=== PATIENT | female | born 1980 | race African-American/Black ===

== ENCOUNTER 2020-01-06 00:15 | Emergency (ER) | payer MEDICAID, OTHER ==
[2020-01-06 01:51] LABS: ABSOLUTE BASOPHILS # (AUTO) 0.1 10^3/uL (0.0-0.2); ABSOLUTE EOSINOPHILS # (AUTO) 0.2 10^3/uL (0.0-0.6); ABSOLUTE LYMPHOCYTES (AUTO) 2.4 10^3/uL (0.5-4.7); ABSOLUTE MONOCYTES (AUTO) 0.4 10^3/uL (0.1-1.4); BASOPHILS % (AUTO) 0.8 % (0-2); EOSINOPHILS % (AUTO) 3.9 % (0-6); HEMATOCRIT 38.7 % (36.0-47.0); HEMOGLOBIN 12.9 g/dL (12.0-15.5); LYMPHOCYTES % (AUTO) 39.3 % (13-45); MEAN CORPUSCULAR HEMOGLOBIN 27.8 pg (27.0-33.4); MEAN CORPUSCULAR HGB CONC 33.4 g/dL (32.0-36.0); MEAN CORPUSCULAR VOLUME 83 fl (80-97); MONOCYTES % (AUTO) 6.9 % (3-13); PLATELET COUNT 182 10^3/uL (150-450); RED BLOOD COUNT 4.65 10^6/uL (3.72-5.28); RED CELL DISTRIBUTION WIDTH 15.7 % (11.5-14.0); SEGMENTED NEUTROPHILS % (AUTO) 49.1 % (42-78); TOTAL CELLS COUNTED % (AUTO) 100 %; WHITE BLOOD COUNT 6.1 10^3/uL (4.0-10.5)
--- NOTE | 2020-01-06 01:51 | ER Document Report ---
ED GI/ - General Chief Complaint: Nausea Stated Complaint: ABDOMINAL PAIN Time Seen by Provider: 01/06/20 01:27 Primary Care Provider: [facility] [Provider Group] - Follow up as needed DOUGLAS DON MD [Primary Care Provider] - Follow up as needed Notes: Patient is a 39-year-old female that comes emergency department for chief complaint of intermittent abdominal cramping, vaginal bleeding and spotting, intermittent nausea, sensitivity to smell of some foods, and occasional lightheadedness. She states that she felt much worse while she was at work today. She states she took 2 Plan B pills over the past month, she had a negative test yesterday. However she denies any current symptoms including dizziness, nausea, abdominal pain, or current vaginal bleeding except for minimal spotting. She denies any dysuria, vaginal discharge, or concerns for STD. She denies any daily medications or surgeries although she was told she was "borderline diabetic" and she is concerned maybe her blood sugar is very high. TRAVEL OUTSIDE OF THE [place] IN LAST 30 DAYS: No - Related Data Allergies/Adverse Reactions: No Known Drug Allergies Allergy (Verified 12/14/14 02:20) Past Medical History - General Information source: Patient - Social History Smoking Status: Never Smoker Frequency of alcohol use: None Drug Abuse: None Lives with: Family Family History: None - Immunizations Immunizations up to date: Yes Hx Diphtheria, Pertussis, Tetanus Vaccination: Yes Review of Systems - Review of Systems Constitutional: See HPI EENT: No symptoms reported Cardiovascular: No symptoms reported Respiratory: No symptoms reported Gastrointestinal: See HPI Genitourinary: See HPI Female Genitourinary: See HPI Musculoskeletal: No symptoms reported Skin: No symptoms reported Hematologic/Lymphatic: No symptoms reported Neurological/Psychological: No symptoms reported Physical Exam - Vital signs Vitals: Temp Pulse Resp BP Pulse Ox 98.3 F 75 16 127/84 H 98 01/06/20 00:22 01/06/20 00:22 01/06/20 00:22 01/06/20 00:22 01/06/20 00:22 - Notes Notes: GENERAL: Alert, interacts well. No acute distress. HEAD: Normocephalic, atraumatic. EYES: Pupils equal, round, and reactive to light. Extraocular movements intact. ENT: Oral mucosa moist, tongue midline. Oropharynx unremarkable. Airway patent. LUNGS: Clear to auscultation bilaterally, no wheezes, rales, or rhonchi. No respiratory distress. Non-tender chest wall. HEART: Regular rate and rhythm. No murmur ABDOMEN: Soft, non-tender. Non-distended. Bowel sounds present in all 4 quadrants. No guarding, rigidity, or rebound tenderness GENITOURINARY: Deferred EXTREMITIES: Moves all 4 extremities spontaneously. No edema, normal radial and dorsalis pedis pulses bilaterally. No cyanosis. BACK: no cervical, thoracic, lumbar midline tenderness. No saddle anesthesia, normal distal neurovascular exam. Moves all extremities in full range of motion. NEUROLOGICAL: Alert and oriented x3. Normal speech. Cranial nerves II through XII grossly intact. Strength 5/5 in all extremities. PSYCH: Normal affect, normal mood. SKIN: Warm, dry, normal turgor. No rashes or lesions noted. Course - Re-evaluation Re-evalutation: Patient is very well-appearing on my exam. She is smiling, talkative, and she has an unremarkable abdominal exam. Vital signs unremarkable. CBC unremarkable, chemistry with very borderline glucose but no acidosis, urinalysis shows possible infection with bacteria, white blood cells. Urine is very concentrated with elevated specific gravity. Patient was given IV fluids. On reevaluation patient has no complaints. Patient now tells me that she has been diagnosed with fibroids and this intermittently increases her bleeding and causes some cramping. Low suspicion of torsion based on her exam. I discussed work-up findings and work-up options. test is negative. Pelvic exam deferred after discussion. Patient had no additional complaints, decision was made to proceed with treatment of potential UTI, patient will follow-up with [facility], she will return for any concerning symptoms, these were discussed. Patient states understanding and agreement. Stable and well-appearing at time of discharge. - Vital Signs Vital signs: Temp Pulse Resp BP Pulse Ox 98.3 F 66 18 138/90 H 100 01/06/20 00:22 01/06/20 05:05 01/06/20 05:05 01/06/20 05:05 01/06/20 05:05 - Laboratory Result Diagrams: 01/06/20 01:34 01/06/20 01:34 Laboratory results interpreted by me: 01/06/20 01/06/2020 01:34 01:34 01:34 RDW 15.7 H Est GFR (MDRD) Non-Af 59 L Glucose 126 H Urine Protein 30 H Urine Blood LARGE H Urine Urobilinogen 2.0 H Ur Leukocyte Esterase MODERATE H Discharge - Discharge Clinical Impression: Abdominal cramping, Metrorrhagia, Dehydration Condition: Stable Disposition: HOME, SELF-CARE Additional Instructions: Your overall evaluation is reassuring. It does show a dehydration, urinary tract infection, but no other concerning findings. Your red blood cells are not concerning the low from your bleeding. Take the antibiotic as prescribed for the urinary tract infection, drink more fluids, follow-up with primary care for additional management. Follow-up with the [facility] referral listed for irregular vaginal bleeding and fibroids. Return if you worsen including fever, vomiting, severe worsening pain, passing out, or any other concerning symptoms. Prescriptions: Cephalexin Monohydrate [Keflex 500 mg Capsule] 500 mg PO BID 5 Days #10 capsule Forms: Return to Work Referrals: DOUGLAS DON MD [Primary Care Provider] - Follow up as needed [facility] [Provider Group] - Follow up as needed
[2020-01-06 02:00] LABS: APPEARANCE,URINE TURBID; BILIRUBIN,URINE NEGATIVE (NEGATIVE); GLUCOSE, URINE NEGATIVE (NEGATIVE); KETONES,URINE NEGATIVE (NEGATIVE); LEUKOCYTE ESTERASE,URINE MODERATE (NEGATIVE); NITRITE,URINE NEGATIVE (NEGATIVE); PROTEIN,URINE 30 mg/dL (NEGATIVE); URINE SPECIFIC GRAVITY 1.036
[2020-01-06 02:01] LABS: ALBUMIN 4.4 g/dL (3.5-5.0); ALKALINE PHOSPHATASE 95 U/L (38-126); ANION GAP 10 (5-19); ASPARTATE AMINO TRANSFERASE 20 U/L (14-36); BILIRUBIN,DIRECT 0.2 mg/dL (0.0-0.4); BILIRUBIN,TOTAL 0.6 mg/dL (0.2-1.3); BLOOD UREA NITROGEN 10 mg/dL (7-20); CALCIUM 9.6 mg/dL (8.4-10.2); CARBON DIOXIDE 26 mmol/L (22-30); CHLORIDE 105 mmol/L (98-107); GLUCOSE 126 mg/dL (75-110); POTASSIUM 3.9 mmol/L (3.6-5.0); TOTAL PROTEIN 7.7 g/dL (6.3-8.2)
[2020-01-06 02:24] LABS: CALCIUM OXALATE CRYSTALS,URINE FEW /HPF
[2020-01-06 02:25] LABS: COLOR,URINE YELLOW
[2020-01-06] MEDS ORDERED: CEPHALEXIN 500 MG CAPSULE PO ONE (03:16)
[2020-01-06] MEDS ORDERED: NORMAL SALINE 1000 ML 1,000 ML IV ONE (03:37)
[2020-01-06 05:10] VITALS: BP 138/90
== END 2020-01-06 05:10 | disposition home or self-care (01) ==
LOC: ER 00:15
DX: R10.9 Unspecified abdominal pain (principal); E86.0 Dehydration; N92.1 Excessive and frequent menstruation with irregular cycle; R11.0 Nausea; R42 Dizziness and giddiness
CPT/HCPCS: 99284; 96360; 36415; 84703; 85025; 80053; 81001; J7030